=== PATIENT | female | born 1990 | race Two or more races ===

== ENCOUNTER 2022-02-23 02:05 | Emergency (ER) | payer OTHER ==
[~2022-02-23] VITALS: Ht 167.6 cm; Wt 102.7 kg
[2022-02-23 02:17] VITALS: BP 133/93
== END 2022-02-23 05:29 | disposition home or self-care (01) ==
LOC: ER 02:05
DX: S06.0X0A Concussion without loss of consciousness, initial encounter (principal); I10 Essential (primary) hypertension; W18.39XA Other fall on same level, initial encounter; Y93.89 Activity, other specified; Y92.89 Other specified places as the place of occurrence of the external cause; Y99.8 Other external cause status
CPT/HCPCS: 70450; 72125